=== PATIENT | female | born 1995 | race Caucasian/White ===

== ENCOUNTER 2016-12-01 06:27 | Inpatient (IN) | payer OTHER ==
[~2016-12-01] VITALS: Ht 157.5 cm; Wt 55.5 kg
[~2016-12-01 06:27] MED LIST: DICY10 PO; ZOFR4TAB3 SL
[2016-12-01 09:20] VITALS: BP 118/72; PULSE 86; RESP 16; TEMP 98.5; O2SAT 100
[2016-12-01] MEDS ORDERED: ONDANSETRON HCL 4 MG/2 ML VIAL IV PUSH ONE (09:55)
[2016-12-01] MEDS ORDERED: NEOSTIGMINE 3 MG/3 ML SYR IV ONE (09:55)
[2016-12-01] MEDS ORDERED: PROPOFOL 200 MG/20 ML AMP IV ONE (09:55)
[2016-12-01] MEDS ORDERED: SODIUM CHLOR 0.9% 1000 ML INJ 1,000 ML IV SCH (10:00)
[2016-12-01 12:08] VITALS: BP 118/67; PULSE 86; RESP 18; TEMP 98.3; O2SAT 99
[2016-12-01] MEDS ORDERED: BUPIVACAINE/EPINEPHRINE 0.5% PF 10 ML VIAL ONE (15:31)
[2016-12-01] MEDS ORDERED: ceFAZolin INJ 1,000 MG VIAL ONE (15:53)
[2016-12-01] MEDS ORDERED: metroNIDAZOLE 500 MG INJ 100 ML IV ONE (16:05)
[2016-12-01] MEDS ORDERED: MIDAZOLAM HCL 2 MG/2 ML VIAL ONE (16:47)
[2016-12-01] MEDS ORDERED: fentaNYL CITRATE 250 MCG/5 ML AMP ONE (16:48)
[2016-12-01] MEDS ORDERED: ACETAMINOPHEN 1000 MG/100 ML VIAL IV ONE ×2 (16:58→17:01)
[2016-12-01] MEDS ORDERED: DO NOT ADM ANY ANTICOAGULANT DRUGS PRN (17:00)
[2016-12-01] MEDS ORDERED: *RESP: ALBUTEROL 2.5 MG/3 ML NEB (PRN) PERIprocedural Use ONLY NEB ONE (17:15)
[2016-12-01] MEDS ORDERED: MORPHINE SULFATE 4 MG/ML INJ IV PRN (17:15)
[2016-12-01] MEDS ORDERED: SODIUM CHLORIDE 0.9% FLUSH 10 ML FLUSH IV FLUSH PRN (17:15)
[2016-12-01] MEDS ORDERED: NALOXONE HCL 0.4 MG/ML AMP IV PRN (17:15)
[2016-12-01] MEDS ORDERED: Post-op Orders (for Pharmacy) MISC XX ONE (17:15)
[2016-12-01] MEDS ORDERED: *MEPERIDINE 25 MG INJ VIAL PERIprocedural Use ONLY ONE (17:25)
[2016-12-01] MEDS: SODIUM CHLOR 0.9% 1000 ML INJ 1,000 ML IV SCH (17:32)
[2016-12-01 18:00] VITALS: BP 111/64; PULSE 93; RESP 18; TEMP 96.3; O2SAT 92
[2016-12-01] MEDS: oxyCODONE/ACETAMINOPHEN 5 MG/325 MG TAB PO PRN ×2 (18:33→22:25)
[2016-12-01] MEDS: PANTOPRAZOLE SOD 40 MG DELAYED RELEASE TAB PO SCH (18:33)
[2016-12-01 20:28] VITALS: O2SAT 92
[2016-12-01] MEDS: SODIUM CHLORIDE 0.9% FLUSH 10 ML FLUSH IV FLUSH SCH (21:00)
--- NOTE | 2016-12-01 21:24 | MP ---
cc: NICOLE JIMENEZ DATE OF SURGERY: 12/01/2016 PREOPERATIVE DIAGNOSIS: Acute appendicitis POSTOPERATIVE DIAGNOSIS: Acute appendicitis OPERATION: Laparoscopic appendectomy. SURGEON Dr. Jimenez ANESTHESIA General. ESTIMATED BLOOD LOSS: 15 cc. DESCRIPTION OF PROCEDURE: The patient was prepped and draped in the usual fashion. The area infiltrated with Xylocaine, supraumbilical and suprapubic. A small incision was made supraumbilical and under direct vision the port is inserted. The abdomen insufflated with CO2 and the patient positioned in Trendelenburg. The 30 degree camera is inserted and then suprapubic 5 millimeter port is inserted and lateral 12 millimeter port. The appendix is visualized, covered with omentum. It is elevated with grasper. Opening is made and the mesoappendix just at the base of the appendix and then Endo HADLEY is fired with vascular load. This is repeated for mesentery and then for the appendix itself. The area irrigated with copious amounts of saline and then specimen removed using EndoCatch bag. Once more abdomen explored in quadrants, irrigated. Instruments withdrawn. Incisions closed with 0 Vicryl and 4-0 Monocryl. The patient tolerated the procedure well. Nicole WILSON /5:04 PM /9:23 PM
[2016-12-01] MEDS: DOCUSATE SODIUM 100 MG CAP PO SCH (22:25)
[2016-12-01] MEDS: metroNIDAZOLE 500 MG INJ 100 ML IV SCH (23:19)
[2016-12-01] MEDS: ONDANSETRON HCL 4 MG/2 ML VIAL IV PRN (23:41)
[2016-12-02] VITALS (7 sets, daily range): BP systolic 100–119; BP diastolic 56–68; PULSE 71–99; RESP 16–18; TEMP 97.5–98.7; O2SAT 93–96
[2016-12-02] MEDS: oxyCODONE/ACETAMINOPHEN 5 MG/325 MG TAB PO PRN ×4 (02:58→17:50)
[2016-12-02] MEDS: SODIUM CHLOR 0.9% 1000 ML INJ 1,000 ML IV SCH ×2 (07:30→17:42)
[2016-12-02] MEDS: DOCUSATE SODIUM 100 MG CAP PO SCH (07:36)
[2016-12-02] MEDS: SODIUM CHLORIDE 0.9% FLUSH 10 ML FLUSH IV FLUSH SCH (07:36)
[2016-12-02] MEDS: metroNIDAZOLE 500 MG INJ 100 ML IV SCH ×2 (07:37→16:00)
[2016-12-02] MEDS: ONDANSETRON HCL 4 MG/2 ML VIAL IV PRN (08:34)
--- NOTE | 2016-12-02 10:17 | PD.CAR.PN ---
CVT Progress Note Subjective/Hospital Course: Abdomen soft, active bs Passes gas OOB diet tolerated Incisions clean dry DC today Objective: Vital Signs Date Time Temp Pulse Resp B/P Pulse Ox O2 Delivery O2 Flow Rate FiO2 12/02/16 08:00 98.6 86 17 100/61 95 12/02/16 03:57 97.9 91 17 107/58 95 12/02/16 00:00 98.7 99 16 103/68 96 12/01/16 23:25 18 12/01/16 20:28 92 Nasal Cannula 2.00 12/01/16 18:00 96.3 93 18 111/64 92 12/01/16 17:45 98.0 81 13 114/65 100 Nasal Cannula 2 12/01/16 17:30 100 25 144/67 97 Nasal Cannula 2 12/01/16 17:15 96 17 125/78 97 Nasal Cannula 12/01/16 17:00 122 25 118/73 94 Nasal Cannula 12/01/16 16:45 98 24 121/59 94 Simple Mask 12/01/16 16:37 96 21 129/62 92 Simple Mask 12/01/16 16:35 111 14 134/64 60 Ambu Bag 10 12/01/16 16:32 97.8 98 14 111/60 65 Ambu Bag 10 12/01/16 12:08 98.3 86 18 118/67 99 Nicole Fuentes MD Dec 02, 2016 10:17
[2016-12-02] MEDS ORDERED: OXYC1TAB63 PO (10:20)
[2016-12-02] MEDS ORDERED: LACTULOSE SYRUP 20 GM/30 ML CUP PO ONE (11:00)
[2016-12-02] MEDS: PANTOPRAZOLE SOD 40 MG DELAYED RELEASE TAB PO SCH (17:50)
== END 2016-12-02 19:08 | disposition home or self-care (01) | DRG 343 ==
LOC: NEDDLT 08:10 → NEPGCP 08:20 → N07B 14:52 → OBSVTOIN 17:10 → N06B 18:04
PROVIDERS: ADMIT Surgery; ATTEND Surgery
PROC: 0DTJ4ZZ Resection of Appendix, Percutaneous Endoscopic Approach (ICD-10-PCS; principal; 2016-12-01 15:29)
DX: K35.80 Unspecified acute appendicitis (principal)
CPT/HCPCS: 74177; 80053; 81001; 83690; 84702; 85025; 87086; 88304; 94150; 94664; J0131; J0690; J2175; J2250; J2270; J2405; J2543; J2710; J3010; J7030; J7613; Q9963; Q9967